=== PATIENT | female | born 1985 | race Two or more races ===

== ENCOUNTER → 2018-04-15 | Outpatient (CLI) | payer MEDICAID | LOC: FIMAGING 11:58 | PROVIDERS: ATTEND Obstetrics & Gynecology | DX: O09.212 Supervision of pregnancy with history of pre-term labor, second trimester (principal); Z3A.25 25 weeks gestation of pregnancy ==

== ENCOUNTER → 2018-06-30 | Outpatient (CLI) | payer MEDICAID | LOC: FIMAGING 09:14 | PROVIDERS: ATTEND Obstetrics & Gynecology | DX: Z36.2 Encounter for other antenatal screening follow-up (principal); O09.213 Supervision of pregnancy with history of pre-term labor, third trimester; Z3A.32 32 weeks gestation of pregnancy ==